=== PATIENT | female | born 1965 | race Caucasian/White ===

== ENCOUNTER 2017-09-08 06:26 | Day surgery (SDC) | payer OTHER ==
[2017-09-08 07:25] LABS: ADD UMIC NO; UR ASCORBIC ACID NEGATIVE (NEGATIVE); UR BILIRUBIN (Dip) NEGATIVE (NEGATIVE); UR BLOOD (Dip) NEGATIVE (NEGATIVE); UR CLARITY CLEAR (CLEAR); UR COLOR STRAW (YELLOW); UR GLUCOSE (Dip) NEGATIVE (NEGATIVE); UR KETONES (Dip) NEGATIVE (NEGATIVE); UR LEUKOCYTE ESTERASE (Dip) NEGATIVE Leu/ul (NEGATIVE); UR NITRITE (Dip) NEGATIVE (NEGATIVE); UR SPECIFIC GRAVITY (Dip) 1.004 (1.003-1.030); UR TOTAL PROTEIN (Dip) NEGATIVE (NEGATIVE); UR UROBILINOGEN (Dip) NEGATIVE (NEGATIVE)
[2017-09-08] MEDS ORDERED: ROPIVACAINE 0.5 % 30 ML VIAL (08:35)
[2017-09-08] MEDS ORDERED: FENTAnyl 50 MCG/ML VIAL (08:36)
[2017-09-08] MEDS ORDERED: LIDOCAINE 1% (MPF) 30 ML INJ (08:38)
[2017-09-08] MEDS ORDERED: SUCCINYLCHOLINE CHLORIDE 100 MG/5 ML SYG IV (08:52)
[2017-09-08] MEDS ORDERED: PROPOFOL 20 ML (08:52)
[2017-09-08] MEDS ORDERED: CEFAZOLIN 1 GM INJ (08:52)
[2017-09-08] MEDS ORDERED: LIDOCAINE 100 MG SYRINGE (08:52)
[2017-09-08] MEDS: HYDROmorphONE 1 MG/5 ML IV SYRINGE IV (09:29)
[2017-09-08] MEDS: METOCLOPRAMIDE 10 MG INJ IV (09:29)
[2017-09-08] MEDS ORDERED: DIPHENHYDRAMINE 50 MG INJ IV (09:30)
[2017-09-08] MEDS ORDERED: ONDANSETRON 4 MG INJ IV (09:30)
[2017-09-08] MEDS ORDERED: MEPERIDINE 25 MG INJ IV (09:30)
[2017-09-08] MEDS ORDERED: FENTAnyl 50 MCG/ML VIAL IV ×2 (09:30)
[2017-09-08] MEDS ORDERED: HYDROmorphONE 1 MG/5 ML IV SYRINGE IV (09:30)
== END 2017-09-08 11:03 | disposition home or self-care (01) ==
LOC: SDS 06:26
DX: M65.311 Trigger thumb, right thumb (principal); I10 Essential (primary) hypertension; E11.9 Type 2 diabetes mellitus without complications; E66.9 Obesity, unspecified; Z68.27 Body mass index [BMI] 27.0-27.9, adult
CPT/HCPCS: 26055; 71045; 81003; 82962; 93005